=== PATIENT | female | born 1970 | race Caucasian/White ===

== ENCOUNTER 2018-04-18 02:33 | Emergency (ER) | payer SELFPAY ==
[~2018-04-18] VITALS: Ht 177.8 cm; Wt 68.0 kg
[2018-04-18 02:40] VITALS: Ht 177.8 cm; Wt 68.0 kg
[2018-04-18 05:08] VITALS: BP 129/88
== END 2018-04-18 04:41 | disposition home or self-care (01) ==
LOC: ED 02:33
DX: M62.838 Other muscle spasm (principal); M54.9 Dorsalgia, unspecified; Z98.890 Other specified postprocedural states
CPT/HCPCS: J1885